=== PATIENT | male | born 1985 | race African-American/Black ===

== ENCOUNTER 2022-07-31 06:28 | Emergency (ER) | payer OTHER ==
[~2022-07-31] VITALS: Ht 185.4 cm; Wt 113.0 kg
[2022-07-31] MEDS ORDERED: ONDANSETRON HCL 4 MG/2 ML VIAL IM ONE (07:30)
[2022-07-31] MEDS ORDERED: FAMOTIDINE 20 MG TAB PO ONE (07:30)
[2022-07-31] MEDS ORDERED: KETOROLAC TROMETH 60MG/2ML VIAL IM ONE (07:30)
[2022-07-31] MEDS ORDERED: ALUM & MAG HYDROX-SIMETH LIQ(MAALOX) 30 ML PO ONE (07:30)
[2022-07-31] MEDS ORDERED: IBUP600T28 PO (08:32)
[2022-07-31] MEDS ORDERED: AMLO-489 PO (08:32)
[2022-07-31] MEDS ORDERED: ONDA-155 PO (08:33)
[2022-07-31 08:50] VITALS: BP 162/82
== END 2022-07-31 08:50 | disposition home or self-care (01) ==
LOC: ER 06:34
DX: S39.011A Strain of muscle, fascia and tendon of abdomen, initial encounter (principal); I10 Essential (primary) hypertension; X58.XXXA Exposure to other specified factors, initial encounter; Y93.89 Activity, other specified; Y92.89 Other specified places as the place of occurrence of the external cause; Y99.8 Other external cause status
CPT/HCPCS: 96372; 99284; J1885; J2405